=== PATIENT | male | born 1975 | race American Indian/Alaskan Native ===

== ENCOUNTER 2017-10-11 13:56 | Emergency (ER) | payer MEDICAID ==
[2017-10-11 14:54] VITALS: BP 130/69; PULSE 79; RESP 18; TEMP 97.9; O2SAT 97
[2017-10-11] MEDS ORDERED: TDAP Vaccine 0.5 mL Syr IM ONE (16:08)
--- NOTE | 2017-10-11 16:55 | RAD ---
PROCEDURE: Right Wrist Radiographs. HISTORY: wrist injury COMPARISON: None. FINDINGS: BONES: Bone alignment and mineralization are normal. There is no acute displaced fracture or bone destruction. JOINTS: Normal. No dislocation. SOFT TISSUES: Normal. OTHER FINDINGS: None. IMPRESSION: No acute fracture or dislocation.
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
== END 2017-10-11 18:00 | disposition home or self-care (01) ==
LOC: ED 13:56
DX: M25.531 Pain in right wrist (principal); S22.32XA Fracture of one rib, left side, initial encounter for closed fracture; Y35.891A Legal intervention involving other specified means, law enforcement official injured, initial encounter; Z23 Encounter for immunization; I10 Essential (primary) hypertension; I50.9 Heart failure, unspecified
CPT/HCPCS: 71101; 73110; 90471; 90715; 96372; 99283; J1885

== ENCOUNTER 2017-12-21 12:01 | Emergency (ER) | payer MEDICAID, OTHER ==
[2017-12-21 12:14] VITALS: RESP 18; TEMP 97.9
--- NOTE | 2017-12-21 13:54 | CT ---
Date of service: 12/21/2017 PROCEDURE: CT Cervical Spine without contrast HISTORY: injury COMPARISON: None available. TECHNIQUE: Axial computed tomography images were obtained of the cervical spine without the use of intravenous contrast. Coronal and sagittal reformatted images were created and reviewed. Radiation dose: Total exam DLP = 655 mGy-cm. This CT exam was performed using one or more of the following dose reduction techniques: Automated exposure control, adjustment of the mA and/or kV according to patient size, and/or use of iterative reconstruction technique. FINDINGS: VERTEBRAE: No fracture. Normal alignment. No destructive bony lesion. DISCS/SPINAL CANAL/NEURAL FORAMINA: No significant central canal or neural foraminal stenosis. Discs heights are grossly preserved. PARASPINAL SOFT TISSUES: Unremarkable. OTHER FINDINGS: None. IMPRESSION: Unremarkable CT of the cervical spine.
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
--- NOTE | 2017-12-21 14:11 | RAD ---
Date of service: 12/21/2017 PROCEDURE: Left Knee Radiographs. HISTORY: Pain. COMPARISON: None. FINDINGS: BONES: Normal. No fracture. JOINTS: Normal. No osteoarthritis. JOINT EFFUSION: None. OTHER FINDINGS: None. IMPRESSION: Normal radiographs of the left knee.
[2017-12-21 14:21] VITALS: BP 116/85; PULSE 77; O2SAT 100
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
== END 2017-12-21 14:30 | disposition home or self-care (01) ==
LOC: ED 12:01
DX: S16.1XXA Strain of muscle, fascia and tendon at neck level, initial encounter (principal); S46.912A Strain of unspecified muscle, fascia and tendon at shoulder and upper arm level, left arm, initial encounter; S80.02XA Contusion of left knee, initial encounter; V43.12XA Car passenger injured in collision with other type car in nontraffic accident, initial encounter; Y92.89 Other specified places as the place of occurrence of the external cause